=== PATIENT | male | born 1975 | race Caucasian/White ===

== ENCOUNTER 2017-02-10 05:55 | Day surgery (SDC) | payer OTHER ==
[2017-02-10] MEDS ORDERED: NS 1,000 ML IV ONE (06:12)
[2017-02-10] MEDS ORDERED: BENZOCAINE UNIT DOSE SPRAY HURRICAINE MM ONE (06:12)
[2017-02-10] MEDS ORDERED: MIDAZOLAM 2 MG/2 ML VIAL IVP ONE (06:12)
[2017-02-10] MEDS ORDERED: fentaNYL 100 MCG/2 ML INJ IVP ONE (06:12)
[2017-02-10] MEDS ORDERED: PROPOFOL 200 MG/20 ML VIAL ONE ×2 (07:36→08:04)
[2017-02-10] MEDS ORDERED: SUCCINYLCHOLINE CHLORIDE*ANESTHESIA ONLY*200 MG/10 ML SYR IVP ONE (07:36)
[2017-02-10] MEDS ORDERED: LIDOCAINE 2% 100 MG/5 ML SYR ONE (07:36)
--- NOTE | 2017-02-10 10:02 | ECHO ---
[id number] + + [address] : : [facility] [address] : : [phone] + + Transesophageal Echocardiographic Report + --+ :Name: Bernarda MEHTA Date: 02/10/2017 07:13 AM : : Hospital Admission Number: [id number] Location: VC: :: 1975 Gender: Male : :Age: 42 yrs Race: WH : :Reason For Study: Eval for PFO : + --+ Left Ventricle Left ventricular systolic function is normal. Right Ventricle The right ventricular systolic function is normal. Atria A patent foramen ovale is present. Injection of contrast documented an interatrial shunt. No thrombus is detected in the left atrial appendage. Right atrial size is normal. Mitral Valve The mitral valve is normal in structure and function. There is no evidence of mitral valve prolapse. There is trace mitral regurgitation. Tricuspid Valve The tricuspid valve is normal in structure and function. There is trace tricuspid regurgitation. Aortic Valve The aortic valve is trileaflet. The aortic valve is normal in structure and function. There is no aortic insufficiency. Pulmonic Valve The pulmonic valve is normal in structure and function. Trace pulmonic valvular regurgitation. Vessels The aortic root is normal size. Ascending aorta is normal. Pericardium The pericardium appears normal. Conclusion A 2D transesophageal echocardiogram with color flow Doppler was performed. Left ventricular systolic function is normal. A patent foramen ovale is present. Injection of contrast documented an interatrial shunt. No thrombus is detected in the left atrial appendage. Trace pulmonic valvular regurgitation. There is trace mitral regurgitation. There is trace tricuspid regurgitation. The aortic valve is normal in structure and function. Final Reading Physician: Artur Calabrese electronically signed on 02/10/2017 10:01 AM Ordering Physician: Artur Calabrese Performed By: Artur Calabrese
--- NOTE | 2017-02-12 17:05 | GPN ---
[f rep st] PROCEDURE NOTE DATE OF PROCEDURE: 02/10/2017 PROCEDURE PERFORMED: Transesophageal echocardiogram. INDICATION FOR PROCEDURE: Evidence of patent foramen ovale on transthoracic echocardiogram and evid ence of splinter hemorrhages. PROCEDURE: After informed consent was obtained, the patient was brought to the cardiovascular care unit where he signed consent for both ERIC and sedation with anesthesia. Risks and benefits of the p rocedure were discussed at length. Patient was agreeable to pursue. Bite block was placed. With t he assistance of anesthesia, propofol was used to achieve appropriate sedation. Once appropriate le agus of sedation was achieved, ERIC probe was passed without difficulty. ERIC probe was used to take i mages of all cardiac structures. Agitated saline contrast study was performed, demonstrating positi ve patent foramen ovale. Please see complete ERIC report for full details. Patient tolerated the procedure well. There were no postoperative complications. CONCLUSION: 1. Positive patent foramen ovale noted by agitated saline contrast study. 2. Remainder of echocardiogram was unremarkable. 3. Patient will follow up in our office. /[id number]/[id number]
== END 2017-02-10 09:25 | disposition home or self-care (01) ==
LOC: FCATH 05:55
PROVIDERS: ATTEND Internal Medicine Cardiovascular Disease
PROC: B246ZZ4 Ultrasonography of Right and Left Heart, Transesophageal (ICD-10-PCS; principal; 2017-02-10)
DX: Q21.1 Atrial septal defect (principal)
CPT/HCPCS: J0330; J2001; J2704